=== PATIENT | female | born 1960 | race Caucasian/White ===

== ENCOUNTER 2021-04-16 10:00 | Emergency (ER) | payer MEDICAID, OTHER ==
[~2021-04-16] VITALS: Ht 154.9 cm; Wt 73.0 kg
[2021-04-16 10:16] VITALS: BP_SYST 119
--- NOTE | 2021-04-16 10:30 | NUR ---
received and in room 6. steady gait, resp unlabored
--- NOTE | 2021-04-16 10:31 | NUR ---
dr shepherd in to assess
[2021-04-16] MEDS ORDERED: HYDROcodone/ACETAMIN 10-325 MG TAB PO ONE (10:45)
[2021-04-16] MEDS ORDERED: KETOROLAC TROMETHAMINE 60 MG/2 ML VIAL IM ONE (10:45)
--- NOTE | 2021-04-16 10:47 | NUR ---
c/o rt leg pain / numbness, denies injury, pulses and circulation intact
[2021-04-16 10:51] LABS: BASOPHILS # (AUTO) 0.1 K/uL (0.0-0.2); BASOPHILS % (AUTO) 0.6 % (0.0-2.0); EOSINOPHILS # (AUTO) 0.1 K/uL (0.0-0.4); EOSINOPHILS % (AUTO) 1.2 % (0.0-4.0); HEMATOCRIT 41.5 % (36-48); HEMOGLOBIN 14.2 g/dL (12.0-16.0); LYMPHOCYTES # (AUTO) 2.5 K/uL (1.0-5.5); LYMPHOCYTES % (AUTO) 25.9 % (20.5-51.5); MEAN CORPUSCULAR HEMOGLOBIN 32 pg (27-31); MEAN CORPUSCULAR HGB CONC 34 % (32-36); MEAN CORPUSCULAR VOLUME 94 fL (79.0-98.0); MONOCYTES # (AUTO) 0.5 K/uL (0.0-1.0); MONOCYTES % (AUTO) 5.5 % (1.7-9.3); NEUTROPHILS # (AUTO) 6.5 K/uL (1.8-7.7); NEUTROPHILS % (AUTO) 66.8 % (40.0-70.0); PLATELET COUNT (AUTO) 230 K/uL (130-430); RED BLOOD CELL COUNT(AUTO) 4.42 MIL/uL (4.2-6.2); RED CELL DISTRIBUTION WIDTH 13.2 % (9.0-15.0); WHITE BLOOD COUNT (AUTO) 9.7 K/uL (4.8-10.8)
[2021-04-16 11:12] LABS: CALCIUM 9.4 mg/dL (8.4-11.0); CREATININE 0.8 mg/dL (0.55-1.30); POTASSIUM 4.1 mmol/L (3.5-5.1)
[2021-04-16 11:30] LABS: ALBUMIN 3.6 g/dL (3.4-4.8); C-REACTIVE PROTEIN QUANT 1.1 mg/dL (0-0.5); TOTAL BILIRUBIN 0.5 mg/dL (0.0-1.0)
[2021-04-16] MEDS ORDERED: IBUP-1969 PO (11:51)
[2021-04-16] MEDS ORDERED: HYDR-3917 PO (11:51)
[2021-04-16 12:00] LABS: ERYTHROCYTE SEDIMENTATION RATE 14 MM/HR (0-20)
[2021-04-16 12:13] VITALS: BP_SYST 119
--- NOTE | 2021-04-16 12:14 | NUR ---
Patient given written and verbal discharge instructions and verbalizes understanding. ER MD discussed with patient the results and treatment provided. Patient in stable condition. ID arm band removed. Rx of IBU/NORCO given. Patient educated on pain management and to follow up with PMD. Pain Scale 2/10 Opportunity for questions provided and answered. Medication side effect fact sheet provided.
== END 2021-04-16 12:14 | disposition home or self-care (01) ==
LOC: SED 10:00
DX: E10.40 Type 1 diabetes mellitus with diabetic neuropathy, unspecified (principal)
CPT/HCPCS: 36415; 80053; 85025; 85651; 86140; 96372; 99283; J1885

== ENCOUNTER 2021-05-04 10:29 | Emergency (ER) | payer MEDICAID ==
[~2021-05-04] VITALS: Ht 154.9 cm; Wt 78.0 kg
[~2021-05-04 10:29] MED LIST: HYDR-3917 PO; IBUP-1969 PO
[2021-05-04 10:47] VITALS: BP_SYST 129
[2021-05-04] MEDS ORDERED: traMADol HCL HCL 50 MG TABLET (ULTRAM) PO ONE (12:15)
[2021-05-04] MEDS ORDERED: KETOROLAC TROMETHAMINE 60 MG/2 ML VIAL IM ONE (12:15)
[2021-05-04] MEDS ORDERED: TRAM50TA2 PO (14:16)
[2021-05-04] MEDS ORDERED: PRED20TA PO (14:16)
[2021-05-04 14:25] VITALS: BP_SYST 131
== END 2021-05-04 14:24 | disposition home or self-care (01) ==
LOC: SED 10:29
DX: M54.31 Sciatica, right side (principal); I10 Essential (primary) hypertension; E11.9 Type 2 diabetes mellitus without complications; Z79.899 Other long term (current) drug therapy
CPT/HCPCS: 72131; 76376; 82962; 96372; 99284; J1885

== ENCOUNTER 2022-07-26 20:12 | Emergency (ER) | payer MEDICAID ==
[~2022-07-26] VITALS: Ht 154.9 cm; Wt 78.9 kg
[~2022-07-26 20:12] MED LIST changes: +PRED20TA PO; +TRAM50TA2 PO
[2022-07-26 20:21] VITALS: BP_SYST 129
--- NOTE | 2022-07-26 20:35 | NUR ---
Patient presents to ED from home with c/o chest tightness and pressure. Patient reports pain 0/10 at this time. Patient reports she felt chest tightness, anxiety, nausea, diarrhea, and a hot feeling from her stomach to her chest around 0500 today. Patient A/Ox4, VSS, ambulatory, resp even and unlabored. ER MD Patterson made aware.
--- NOTE | 2022-07-26 20:36 | NUR ---
Patient triaged and placed in waiting room. Patient appears in no acute distress at this time. Accompanied by daughter, awaiting available bed, and MD made aware.
--- NOTE | 2022-07-26 20:40 | NUR ---
Patient taken to lab for blood draw.
[2022-07-26 20:55] LABS: BASOPHILS # (AUTO) 0.1 K/uL (0.0-0.2); BASOPHILS % (AUTO) 0.8 % (0.0-2.0); EOSINOPHILS # (AUTO) 0.1 K/uL (0.0-0.4); HEMATOCRIT 43.5 % (36-48); HEMOGLOBIN 14.9 g/dL (12.0-16.0); LYMPHOCYTES # (AUTO) 2.3 K/uL (1.0-5.5); LYMPHOCYTES % (AUTO) 29.7 % (20.5-51.5); MEAN CORPUSCULAR HEMOGLOBIN 31 pg (27-31); MEAN CORPUSCULAR HGB CONC 34 % (32-36); MEAN CORPUSCULAR VOLUME 92 fL (79.0-98.0); MONOCYTES # (AUTO) 0.5 K/uL (0.0-1.0); MONOCYTES % (AUTO) 6.9 % (1.7-9.3); NEUTROPHILS # (AUTO) 4.8 K/uL (1.8-7.7); NEUTROPHILS % (AUTO) 61.6 % (40.0-70.0); PLATELET COUNT (AUTO) 215 K/uL (130-430); RED BLOOD CELL COUNT(AUTO) 4.75 MIL/uL (4.2-6.2); RED CELL DISTRIBUTION WIDTH 13.2 % (9.0-15.0); WHITE BLOOD COUNT (AUTO) 7.7 K/uL (4.8-10.8)
[2022-07-26 21:12] LABS: ANION GAP 10 (5-15); CALCIUM 9.4 mg/dL (8.4-11.0); CHLORIDE 103 mmol/L (98-107); CREATININE 0.64 mg/dL (0.55-1.30); GLUCOSE 138 mg/dL (70-99); UREA NITROGEN, BLOOD 10 mg/dL (8-21)
[2022-07-26 21:19] LABS: ALANINE AMINOTRANSFERASE 40 U/L (12-78); ALBUMIN 4.1 g/dL (3.4-4.8); ASPARTATE AMINOTRANSFERASE 25 U/L (10-37); TOTAL BILIRUBIN 0.6 mg/dL (0.0-1.0)
[2022-07-26 21:21] LABS: GFR AFRICAN AMERICAN 121 mL/min (>90)
--- NOTE | 2022-07-26 23:14 | NUR ---
Placed in room 7 . Placed on animation camera operator, blood pressure machine and pulse oximeter. To gown for exam. Side rails up. Report given to BENNIE DIALLO(REG).
--- NOTE | 2022-07-26 23:30 | NUR ---
ERMD AT BEDSIDE EVALUATING PATIENT
[2022-07-26 23:46] VITALS: BP_SYST 125
--- NOTE | 2022-07-26 23:46 | NUR ---
Patient given written and verbal discharge instructions and verbalizes understanding. ER MD discussed with patient the results and treatment provided. Patient in stable condition. ID arm band removed. Patient educated to follow up with PMD. Pain Scale 0/10. Opportunity for questions provided and answered.
== END 2022-07-26 23:46 | disposition home or self-care (01) ==
LOC: SED 20:12
DX: R07.89 Other chest pain (principal); R10.13 Epigastric pain; E11.9 Type 2 diabetes mellitus without complications; I10 Essential (primary) hypertension; Z79.899 Other long term (current) drug therapy
CPT/HCPCS: 36415; 71045; 80053; 84484; 85025; 93005; 99285